=== PATIENT | male | born 1995 | race Caucasian/White ===

== ENCOUNTER 2017-08-26 12:52 | Emergency (ER) | payer OTHER ==
[2017-08-26 13:03] VITALS: BP 149/83
--- NOTE | 2017-08-26 13:20 | UC ---
Abdominal Pain Male HPI - HPI Summary HPI Summary: 21 yo male with RLQ pain x 1 1/2 -2 weeks initially only 1-2 x day past few days it has increased in frequency pain lasts seconds now it hurts when he coughs fatigue nausea some diarrhea has dysentery 1 yr ago ([place]) - History of Current Complaint Chief Complaint: UCAbdominalPain Stated Complaint: LOWER RIGHT SHARP ABDOMINAL PAIN Time Seen by Provider: 08/26/17 13:01 Hx Obtained From: Patient Onset/Duration: Sudden Onset, Lasting Minutes - seconds Timing: Intermittent Episodes Lasting: Severity Initially: Moderate Severity Currently: Moderate Pain Intensity: 7 - 0 at present Pain Scale Used: 0-10 Numeric Location: Discrete At: RLQ Radiates: No Character: Sharp Aggravating Factor(s): Deep Breaths - cough Alleviating Factor(s): Nothing Associated Signs And Symptoms: Positive: Nausea, Diarrhea - Allergies/Home Medications Allergies/Adverse Reactions: Allergies Allergy/AdvReac Type Severity Reaction Status Date / Time No Known Allergies Allergy Verified 08/26/17 13:03 Home Medications: Home Medications NK [No Home Medications Reported] 08/26/17 [History Confirmed 08/26/17] PMH/Surg Hx/FS Hx/Imm Hx Previously Healthy: Yes - Surgical History Surgical History: Yes Surgery Procedure, Year, and Place: [place] Teeth Extraction - Family History Known Family History: Positive: Hypertension - Social History Alcohol Use: Weekly Substance Use Type: Marijuana Substance Use Comment - Amount & Last Used: Occassionally Smoking Status (MU): Never Smoked Tobacco Review of Systems Constitutional: Fatigue Skin: Negative Eyes: Negative ENT: Negative Respiratory: Negative Cardiovascular: Negative Gastrointestinal: Abdominal Pain, Diarrhea, Nausea Genitourinary: Negative Motor: Negative Neurovascular: Negative Musculoskeletal: Negative Neurological: Negative Psychological: Negative Is Patient Immunocompromised?: No All Other Systems Reviewed And Are Negative: Yes Physical Exam Triage Information Reviewed: Yes Appearance: No Pain Distress, Well-Nourished Vital Signs: Initial Vital Signs Temp 98.9 F 08/26/17 12:58 Pulse 73 08/26/17 12:58 Resp 18 08/26/17 12:58 BP 149/83 08/26/17 12:58 Pulse Ox 98 08/26/17 12:58 Vital Signs Reviewed: Yes Eyes: Positive: Conjunctiva Clear ENT: Positive: Hearing grossly normal. Negative: Nasal congestion, Nasal drainage, Trismus, Muffled voice, Hoarse voice Neck: Positive: Supple, Nontender, No Lymphadenopathy Respiratory: Positive: Lungs clear, Normal breath sounds, No respiratory distress Cardiovascular: Positive: RRR, No Murmur Abdomen Description: Positive: Nontender, No Organomegaly, Soft. Negative: CVA Tenderness (R), CVA Tenderness (L), Distended, Guarding, McBurney's Point Tenderness, Pulsatile Mass Bowel Sounds: Positive: Present Musculoskeletal: Positive: ROM Intact, No Edema Neurological: Positive: Alert Psychological Exam: Normal Skin Exam: Normal Diagnostics - Laboratory Diagnostic Studies Completed/Ordered: Udip-tr protein and bilirubin Abd Pain Male Course/Dx - Differential Dx/Clinical Impression Differential Diagnosis/HQI/PQRI: Other - Crohn's, colitis, Provider Diagnoses: intermittent abdominal pain and and diarrhea of uncertain cause Discharge - Sign-Out/Discharge Documenting (check all that apply): Discharge - Discharge Plan Condition: Stable Disposition: HOME Patient Education Materials: Acute Abdominal Pain (DC), Acute Diarrhea (ED) Referrals: Augusto Mishra MD [Medical Doctor] - As Soon As Possible Additional Instructions: bring in stool for studies blood work pending If stool studies are negative I suggest you see a specialist (skin toggler ) TO ER FOR FEVER CONSTANT PAIN VOMITING - Billing Disposition and Condition Condition: STABLE Disposition: HOME
[2017-08-26 18:45] LABS: ABS Basophils 0 10^3/ul (0-0.2); ABS Eosinophils 0 10^3/ul (0-0.6); ABS Lymphocytes 1.5 10^3/ul (1.0-4.8); ABS Monocytes 0.5 10^3/ul (0-0.8); ABS Neutrophils 5.1 10^3/ul (1.5-7.7); ABS Nucleated RBC 0 10^3/ul; Eosinophil % 0.5 % (0-6); Hematocrit 44 % (42-52); Hemoglobin 14.8 g/dl (14.0-18.0); Lymphocyte % 20.6 % (25-47); Mean Corpuscular HGB Conc 34 g/dl (31-36); Mean Corpuscular Hemoglobin 29 pg (27-31); Mean Corpuscular Volume 84 fL (80-94); Mean Platelet Volume 8.8 um3 (7.4-10.4); Nucleated Red Blood Cells % 0; Platelet Count 232 10^3/ul (150-450); Red Blood Count 5.15 10^6/ul (4.0-5.4); Red Cell Distribution Width 14 % (10.5-15); White Blood Count 7.1 10^3/ul (3.5-10.8)
== END 2017-08-26 14:20 | disposition home or self-care (01) ==
LOC: UCCORT 12:52
DX: R10.31 Right lower quadrant pain (principal); R19.7 Diarrhea, unspecified
CPT/HCPCS: 36415; 81003; 85025; 85652; 99201; G0463